=== PATIENT | female | born 1990 | race Caucasian/White ===

== ENCOUNTER 2022-07-08 14:32 | Emergency (ER) | payer OTHER ==
[2022-07-08] MEDS ORDERED: Morphine 4 MG/ML VIAL ONE ×3 (14:54→18:38)
[2022-07-08 16:52] LABS: Bilirubin Neg (Negative); Blood, Urine Negative (Negative); Clarity Clear (Clear); Glucose, Urine (Dipstick) Normal (Negative); Ketone, Urine 5 mg/dL (Negative); Leukocyte Negative (Negative); Nitrite Negative (Negative); Protein, Urine (Dipstick) Negative (Neg-Trace); Urobilinogen Normal mg/dL (Less than 2)
[2022-07-08] MEDS ORDERED: HYDROcodone/Acetaminophen 5/325 mg Tablet ONE (20:36)
== END 2022-07-08 20:31 | disposition home or self-care (01) ==
LOC: CSHERS 14:32
DX: R10.31 Right lower quadrant pain (principal); R33.9 Retention of urine, unspecified
CPT/HCPCS: 51702; 76770; 76856; 96372; J2270